=== PATIENT | male | born 1960 | race Caucasian/White ===

== ENCOUNTER 2016-08-06 14:46 | Observation (INO) | payer BC ==
[2016-08-06 15:31] LABS: Urine Bilirubin Negative (NEGATIVE); Urine Blood 250 /ul (NEGATIVE); Urine Ketone Negative (NEGATIVE); Urine Nitrite Negative (NEGATIVE); Urine Protein 15 mg/dL (NEGATIVE); Urine Urobilinogen Normal (NORMAL); Urine pH 6.5 pH (5.0-7.0)
[2016-08-06] MEDS ORDERED: KETOROLAC TROMETHAMINE 60 MG/2 ML VIAL IM ONE ×2 (15:37→15:38)
[2016-08-06 15:43] LABS: Urine Appearance Cloudy; Urine Color Brown; Urine WBC None Seen /hpf (0-5)
[2016-08-06 15:44] LABS: Urine Bacteria TRACE; Urine RBC >50 /hpf (0-5)
[2016-08-06] MEDS ORDERED: ONDANSETRON 4 MG TAB.RAPDIS ONE (15:44)
[2016-08-06] MEDS ORDERED: ONDANSETRON 4 MG TAB.RAPDIS PO ONE (15:44)
--- NOTE | 2016-08-06 15:52 | ERNOTE ---
Back Pain ER HPI Date of Service: 08/06/16 Time Seen by Provider: 08/06/16 15:21 Source: patient Exam Limitations: no limitations Immunizations: IMMUNIZATION HX Immunizations Up to Date Yes Allergies/Adverse Reactions: Allergies No Known Allergies Allergy (Verified 08/06/16 17:36) Home Medications: HOME MEDICATIONS Ciprofloxacin HCl [Cipro] 500 mg PO BID #10 tab 08/07/16 [Last Taken Unknown] Tamsulosin HCl [Flomax] 2 cap PO DAILY@1800 #10 cap 08/07/16 [Last Taken Unknown ] Narrative: Pt. comes in with c/o R flank pain for three days that resolved two days ago and returned suddenly this morning. Pt. denies any fever, SOB, CP, numbness or tingling. Pt. does state that he has had nausea and vomiting with this. Pt. denies any Alleviating factors, aggravating factors, or prehospital treatment. Review of Systems - Review of Systems Constitutional: Present: no symptoms reported. Absent: fever, chills, weakness , fatigue, malaise EYE: Present: no symptoms reported ENT: Present: no symptoms reported. Absent: nose congestion, nasal drainage, sore throat Respiratory: Present: no symptoms reported. Absent: shortness of breath, cough , wheezing Cardiology: Present: no symptoms reported. Absent: chest pain, palpitations, edema Gastrointestinal/Abdominal: Present: nausea, vomiting, abdominal pain - RLQ suprapubic Genitourinary: Present: pain - R flank and groin. Absent: hematuria, decreased urinary output Musculoskeletal: Present: back pain - R flank. Absent: neck pain, joint pain Skin: Present: no symptoms reported Neurological: Present: no symptoms reported. Absent: headache, dizziness/light- headedness, numbness, tingling All Other Systems: All systems neg except as marked - Patient's Past Medical History Patient History - Medical: Kidney stone Patient History - Cardiac/Respiratory: No pertinent hx Patient History - Cancer: No Hx of Cancer Patient History - Surgical Procedures: No surgical history Patient History - Other: None - Family History Mother Family History - Medical: No pertinent hx Father Family History - Medical: No pertinent hx Family History - Cancer: Colon, Prostate - Social History Living Situations: home Psych History: No pertinent hx - Immunizations Immunizations Up to Date: Yes Physical Exam - Physical Exam General Appearance: Present: wd/wn, alert, no apparent distress Eye Exam: Normal inspection: bilateral, PERRL: bilateral, EOMI: bilateral Ears, Nose, Throat: Present: normal ENT inspection, normal pharynx Neck: Present: normal inspection, nontender. Absent: lymphadenopathy (R), lymphadenopathy (L) Respiratory: Present: no respiratory distress, normal breath sounds, no accessory muscle use, chest nontender, lungs clear Cardiovascular/Chest: Present: regular rate, rhythm, no murmur, normal peripheral pulses Gastrointestinal/Abdominal: Present: normal bowel sounds, nondistended, soft, no organomegaly, tenderness - RLQ suprapubic Back Exam: Present: normal range of motion, no vertebral tenderness, CVA tenderness (R) Extremity Exam: Present: normal inspection, non-tender, normal range of motion, no edema Neurological Exam: Present: alert, oriented, normal mood/affect, no motor/ sensory deficits, fur designer II-XII nml as tested, normal cerebellar test Skin Exam: Present: normal color, warm/dry. Absent: pallor, skin rash ED Progress - Results and Orders Patient's Lab Results:: I have reviewed the patient's lab results. - Vital Signs Patient's Vital Signs:: I have reviewed the patient's vital signs. Vital Signs: Vital Signs 08/06/16 14:56 Temperature 36.2 C L Pulse Rate 80 Respiratory 12 Rate Blood Pressure 157/95 O2 Sat by Pulse 99 Oximetry - CT/Ultrasound CT/Ultrasound Narrative: CT scan with 3.5mm stone R mid to distal ureter with hydronephrosis and perinephric stranding. with mild hydroureter and ureteral stranding. - Progress/Reassessment Chief Complaint: Back Pain Progress:: Improved Departure Clinical Impression: Hydronephrosis of right kidney, Renal stone - Departure Disposition: [facility] Condition: Good
[2016-08-06 15:58] LABS: Hematocrit 48.1 % (42.0-52.0); Hemoglobin 16.7 gm/dL (13.5-18.0); Mean Cell Volume 87.3 fl (78-100); Mean Corpuscular Hemoglobin 30.3 pg (27-31); Mean Corpuscular Hgb Conc 34.7 g/dl (32-36); Mean Platelet Volume 10.7 fl (6.0-9.5); Neutrophil # 9.5 K/mm3 (1.3-6.0); Neutrophil % 78.7 % (42-75.0); Platelet Count 300 K/mm3 (150-450); Red Blood Count 5.51 M/mm3 (4.7-6.0); Red Cell Distribution Width 12.2 % (11.5-14.0); White Blood Count 12.1 K/mm3 (4.0-10.5)
[2016-08-06 16:12] LABS: Albumin * 3.8 gm/dl (3.4-5.0); Anion Gap 11.5 mmol/L (6.8-13.8); BUN/Creatinine Ratio 11.3 (9.0-21.6); Bilirubin, Total 0.9 mg/dL (0.0-1.1); Ca. Corrected For Albumin 8.9 mg/dL (8.4-10.2); Calcium * 9.1 mg/dL (7.9-10.9); Carbon Dioxide 30.1 mmol/L (24-32.6); Potassium 4.6 mmol/L (3.4-4.6); Total Protein 7.9 gm/dL (6.2-8.2)
[2016-08-06] MEDS ORDERED: NORMAL SALINE 1,000 ML IV ONE (16:59)
[2016-08-06] MEDS ORDERED: ONDANSETRON HCL/PF 2 MG/ML VIAL IV PRN (17:18)
[2016-08-06] MEDS ORDERED: HYDROmorphone HCL 1 MG/ML DISP.SYRIN IV PRN (17:18)
[2016-08-06] MEDS ORDERED: ACETAMINOPHEN 325 MG TABLET PO PRN (17:18)
[2016-08-06] MEDS: CIPROFLOXACIN LACTATE/D5W 400 MG/200 ML BAG IV SCH (17:26)
[2016-08-06] MEDS ORDERED: TAMSULOSIN HCL 0.4 MG CAP.SR.24H PO SCH (18:00)
[2016-08-06] MEDS: DEXTROSE 5%-NORMAL SALINE 1,000 ML IV PRN (18:55)
--- NOTE | 2016-08-06 19:28 | HP ---
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 He just recently moved to [place]. 3 days ago, he developed the sudden onset of pain across his lower abdomen, moderately severe, which abated without treatment after a few hours. Today, about 8 am, he developed right flank pain, which was much more severe, and radiated into his right groin. It has still not abated, but is better after IV pain medication. It has been associated with nausea and vomiting. No hematuria, no dysuria, no fever, chills or sweats. Aching and sharp in nature. He has had this twice in the past, each time very severe, each time the stone passed in the hospital, size of stone unknown, stone not recovered. This time, he came to the [facility] ER, stone about 3.5 mm diameter in mid right ureter, with mild hydronephrosis on the right side, slight elevation in wbc count, hematuria under the microscope, and slight elevation of creatinine. Dr. Naqvi, urology, has been consulted and will see the patient tomorrow. - Patient's Past Medical History Patient History - Medical: Kidney stone Patient History - Cardiac/Respiratory: No pertinent hx Patient History - Cancer: No Hx of Cancer Patient History - Surgical Procedures: Colonoscopy Patient History - Other: None - Family History Mother Family History - Medical: No pertinent hx Father Family History - Medical: No pertinent hx Family History - Cancer: Colon, Prostate - Social History Living Situations: home Psych History: No pertinent hx Smoking Status: Never smoker Have you smoked in the past 12 months: No Do you dip or chew tobacco: No Patient requests Smoking Cessation Consult: No Initiate information on Smoking Cessation: No Alcohol Use: rarely Drug Use: none - Immunizations Immunizations Up to Date: Yes Review Of Systems (GEN) - Review of Systems Generalized/Overall Review: Present: No Symptoms Reported EENTM: Present: No Symptoms Reported Respiratory: Present: No Symptoms Reported Cardiac: Present: No Symptoms Reported Abdominal: Present: Other - see HPI Genitourinary: Present: Other - see HPI Musculoskeletal: Present: No Symptoms Reported Neurological: Present: No Symptoms Reported Skin: Present: No Symptoms Reported Endocrine: Present: No Symptoms Reported Misc: All systems neg except as marked Allergies/Adverse Reactions: Allergies Allergy/AdvReac Type Severity Reaction Status Date / Time No Known Allergies Allergy Verified 08/06/16 17:36 Home Medications: HOME MEDICATIONS NK [No Home Medication] 08/06/16 [Last Taken Unknown] Exam - Exam Vital Signs: Vital Signs - Last Taken Selected Entries 08/06/16 18:38 Temperature 37.0 C Temperature Oral Source Pulse Rate 87 Pulse Rhythm Regular Pulse Strength Normal Respiratory 16 Rate Respiratory Normal Depth Respiratory Normal Effort Non-Labored Respiratory Normal Pattern Blood Pressure 146/87 Blood Pressure Sitting Position O2 Sat by Pulse 95 Oximetry Oxygen Delivery Room Air Method Constitutional: Present: Alert, Oriented x3, Cooperative, Well developed, Well nourished, Mild distress ENT Exam: Present: normal ENT inspection, hearing grossly normal Eye Exam: bilateral eye: normal inspection, PERRL, EOMI Neck: Present: normal inspection Back Exam: Present: normal inspection, CVA tenderness (R) Respiratory: Present: lungs clear, normal breath sounds Cardiovascular/Chest: Present: regular rate, rhythm, no murmur Abdomen: Present: Normal bowel sounds, soft, nontender, nondistended, no rebound tenderness, no hepatospenomegaly, no masses Extremity: Present: normal inspection, no pedal edema Skin Exam: Present: normal color, warm/dry, no cyanosis Neurologic: Present: alert, oriented x 3 Appearance: Present: appropriate appearance, appropriate insight, neat Eye contact: Present: cooperative, good eye contact, normal speech Thoughts: Present: normal thought pattern Diagnostic Studies: Laboratory Results WBC 12.1 K/mm3 (4.0-10.5) H 08/06/16 15:50 RBC 5.51 M/mm3 (4.7-6.0) 08/06/16 15:50 Hgb 16.7 gm/dL (13.5-18.0) 08/06/16 15:50 Hct 48.1 % (42.0-52.0) 08/06/16 15:50 MCV 87.3 fl (78-100) 08/06/16 15:50 MCH 30.3 pg (27-31) 08/06/16 15:50 MCHC 34.7 g/dl (32-36) 08/06/16 15:50 RDW 12.2 % (11.5-14.0) 08/06/16 15:50 Plt Count 300 K/mm3 (150-450) 08/06/16 15:50 MPV 10.7 fl (6.0-9.5) H 08/06/16 15:50 Immature Gran % (Auto) 0.60 % (0.001-0.429) H 08/06/16 15:50 Immature Gran # (Auto) 0.07 K/mm3 (0.000-0.0310) H 08/06/16 15:50 Neutrophils % 78.7 % (42-75.0) H 08/06/16 15:50 Lymphocytes % 13.3 % (20-51) L 08/06/16 15:50 Monocytes % 5.2 % (0.0-9) 08/06/16 15:50 Eosinophils % 1.7 % (0.0-3.0) 08/06/16 15:50 Basophils % 0.5 % (0.0-1.0) 08/06/16 15:50 Nucleated RBC % 0.0 k/mm3 (0-1) 08/06/16 15:50 Neutrophils # 9.5 K/mm3 (1.3-6.0) H 08/06/16 15:50 Lymphocytes # 1.6 k/mm3 (1.5-3.5) 08/06/16 15:50 Monocytes # 0.6 k/mm3 (0.0-1.0) 08/06/16 15:50 Eosinophils # 0.2 k/mm3 (0.0-0.7) 08/06/16 15:50 Absolute Basophils 0.1 k/mm3 (0.0-0.1) 08/06/16 15:50 Sodium 141 mmol/L (132-142) 08/06/16 15:50 Plasma Sodium 142 mmol/L (130-142) 08/06/16 15:50 Potassium 4.6 mmol/L (3.4-4.6) 08/06/16 15:50 Chloride 104 mmol/L (97-106) 08/06/16 15:50 Carbon Dioxide 30.1 mmol/L (24-32.6) 08/06/16 15:50 Anion Gap 11.5 mmol/L (6.8-13.8) 08/06/16 15:50 BUN 18 mg/dL (6-23) 08/06/16 15:50 Creatinine 1.60 mg/dL (0.4-1.4) H 08/06/16 15:50 Est GFR (Non-Af Amer) 48 mL/min (60-130) L 08/06/16 15:50 BUN/Creatinine Ratio 11.3 (9.0-21.6) 08/06/16 15:50 Random Glucose 148 mg/dL (70-110) H 08/06/16 15:50 Calcium 9.1 mg/dL (7.9-10.9) 08/06/16 15:50 Calcium Adj for Albumin 8.9 mg/dL (8.4-10.2) 08/06/16 15:50 Total Bilirubin 0.9 mg/dL (0.0-1.1) 08/06/16 15:50 AST 18 U/L (0-48) 08/06/16 15:50 ALT 36 U/L (19-67) 08/06/16 15:50 Alkaline Phosphatase 126 U/L (50-170) 08/06/16 15:50 Total Protein 7.9 gm/dL (6.2-8.2) 08/06/16 15:50 Albumin 3.8 gm/dl (3.4-5.0) 08/06/16 15:50 Urine Color Brown 08/06/16 15:16 Urine Appearance Cloudy 08/06/16 15:16 Urine pH 6.5 pH (5.0-7.0) 08/06/16 15:16 Ur Specific Cornelius 1.020 SP.GR. (1.005-1.030) 08/06/16 15:16 Urine Protein 15 mg/dL (NEGATIVE) H 08/06/16 15:16 Urine Glucose (UA) Negative mg/dL (NEGATIVE) 08/06/16 15:16 Urine Ketones Negative mg/dL (NEGATIVE) 08/06/16 15:16 Urine Blood 250 /ul (NEGATIVE) H 08/06/16 15:16 Urine Nitrate Negative (NEGATIVE) 08/06/16 15:16 Urine Bilirubin Negative mg/dl (NEGATIVE) 08/06/16 15:16 Prot Sulfosalicylic Acd 3+ mg/dL (0) H 08/06/16 15:16 Urine Urobilinogen Normal EU/dl (NORMAL) 08/06/16 15:16 Ur Leukocyte Esterase Negative /ul (NEGATIVE) 08/06/16 15:16 Urine RBC >50 /hpf (0-5) H 08/06/16 15:16 Urine WBC None seen /hpf (0-5) 08/06/16 15:16 Ur Epithelial Cells None seen /hpf (0-5) 08/06/16 15:16 Urine Bacteria Trace (NONE) 08/06/16 15:16 Urine Culture Comments No culture indicated 08/06/16 15:16 Assessment/Plan - Narrative Narrative: Follow labs. Cipro IV. symptom control. Strain urine. Flomax. Urology consult. - Assessment/Plan (1) Renal colic on right side Problem: Acute (2) Hydronephrosis of right kidney Problem: Acute (3) Failure of outpatient treatment Problem: Acute (4) Leukocytosis Problem: Acute Qualifiers: Leukocytosis type: unspecified Qualified Code(s): D72.829 - Elevated white blood cell count, unspecified (5) Acute renal failure superimposed on stage 2 chronic kidney disease Problem: Acute Qualifiers: Acute renal failure type: unspecified Qualified Code(s): N17.9 - Acute kidney failure, unspecified; N18.2 - Chronic kidney disease, stage 2 (mild)
[2016-08-07] MEDS: DEXTROSE 5%-NORMAL SALINE 1,000 ML IV PRN (02:58)
[2016-08-07] MEDS: CIPROFLOXACIN LACTATE/D5W 400 MG/200 ML BAG IV SCH (04:25)
[2016-08-07 05:46] LABS: Hematocrit 41.8 % (42.0-52.0); Hemoglobin 14.5 gm/dL (13.5-18.0); Mean Cell Volume 87.6 fl (78-100); Mean Corpuscular Hemoglobin 30.4 pg (27-31); Mean Corpuscular Hgb Conc 34.7 g/dl (32-36); Neutrophil # 6.4 K/mm3 (1.3-6.0); Neutrophil % 63.8 % (42-75.0); Platelet Count 217 K/mm3 (150-450); Red Blood Count 4.77 M/mm3 (4.7-6.0); Red Cell Distribution Width 12.1 % (11.5-14.0)
[2016-08-07 06:04] LABS: Anion Gap 10.8 mmol/L (6.8-13.8); BUN/Creatinine Ratio 9.3 (9.0-21.6); Carbon Dioxide 28.8 mmol/L (24-32.6); Estimated Creat Clear 68.2; Potassium 3.6 mmol/L (3.4-4.6)
[2016-08-07 06:30] VITALS: BP 110/57
[2016-08-07] MEDS ORDERED: ENOXAPARIN SODIUM 40 MG/0.4 ML SYRG SC SCH (07:45)
--- NOTE | 2016-08-07 08:07 | DS ---
(1) Renal colic on right side Problem: Resolved (2) Hydronephrosis of right kidney Problem: Acute (3) Failure of outpatient treatment Problem: Resolved (4) Leukocytosis Problem: Resolved Qualifiers: Leukocytosis type: unspecified Qualified Code(s): D72.829 - Elevated white blood cell count, unspecified (5) Acute renal failure superimposed on stage 2 chronic kidney disease Problem: Resolved Qualifiers: Acute renal failure type: unspecified Qualified Code(s): N17.9 - Acute kidney failure, unspecified; N18.2 - Chronic kidney disease, stage 2 (mild) Description of Stay: Improved by evening the day of admission. No pain at all since, symptom free. No stone recovered. No need for urology consult. Can go home straining urine with outpatient followup. Procedures Performed: none Discharge Disposition: Home self care Disposition: Home self-care Condition: Good Discharge Activity: Activity as tolerated Discharge Diet: General/regular food - Drink so much liquid at all times that your urine never has any color. Consultation Done:: Urology consultation, Dr. Naqvi, ordered, but not needed. Problem Oriented Discharge Instructions to Patient/Family: Renal Colic, Easy-to -Read, Kidney Stones, [id number] Additional Patient Instructions (free text): Strain all urine for the next five days. If you collect one, save it and give it to your doctor. See your doctor this week. No activity restrictions. Prescriptions (Any new or edited meds): Ciprofloxacin HCl [Cipro] 500 mg PO BID #10 tab Tamsulosin HCl [Flomax] 2 cap PO DAILY@1800 #10 cap Complete Home Medications List: Complete Home Medication List: Ciprofloxacin HCl [Cipro] 500 mg PO BID #10 tab 08/07/16 Tamsulosin HCl [Flomax] 2 cap PO DAILY@1800 #10 cap 08/07/16
== END 2016-08-07 08:45 | disposition home or self-care (01) ==
LOC: ER 14:46 → MS 16:57
PROVIDERS: ADMIT Allergy & Immunology; ATTEND Allergy & Immunology
DX: N13.2 Hydronephrosis with renal and ureteral calculous obstruction (principal); N18.2 Chronic kidney disease, stage 2 (mild); D72.829 Elevated white blood cell count, unspecified; N17.9 Acute kidney failure, unspecified
CPT/HCPCS: 36415; 74176; 80048; 80053; 81001; 85025; 96365; 96366; 96367; 96372; 99284; G0378

== ENCOUNTER 2017-02-13 03:51 | Emergency (ER) | payer OTHER, BC ==
[2017-02-13 04:00] VITALS: BP 158/99
[2017-02-13] MEDS ORDERED: TETRACAINE HCL 150 DROP BTL EACHEYE ONE (04:06)
[2017-02-13] MEDS ORDERED: TETRACAINE HCL 150 DROP BTL ONE (04:07)
[2017-02-13] MEDS ORDERED: GENTAMICIN SULFATE 3.5 APPL TUBE RIGHTEYE ONE (04:19)
[2017-02-13] MEDS ORDERED: GENTAMICIN SULFATE 3.5 APPL TUBE ONE (04:22)
--- NOTE | 2017-02-13 04:40 | ERNOTE ---
ENT HPI Presenting Symptoms: eye pain Time Seen by Provider: 02/13/17 04:05 Source: patient Exam Limitations: no limitations - Immun/Allergies/Home Medications Immunizations: IMMUNIZATION HX Immunizations Up to Date Yes History of Influenza Vaccine No Hx Pneumococcal Vaccination No Allergies/Adverse Reactions: Allergies Allergy/AdvReac Type Severity Reaction Status Date / Time No Known Allergies Allergy Verified 08/06/16 17:36 - History of Present Illness Narrative: Pt was sitting in his office and felt something go into his eye. He tried rubbing it tried wiping it with tissue all without improvement. Severity: Present: moderate ENT Location: Present: eye (R) Prearrival Treatment: Present: flushing eys - and attempting to remove FB with tissue Modifying Factors - Improves: Reports: nothing Associated Symptoms - ENT: Reports: denies symptoms Review of Systems - Review of Systems Constitutional: Absent: recent illness EYE: Present: see HPI, tearing. Absent: blurred vision, double vision ENT: Present: no symptoms reported Respiratory: Present: no symptoms reported Cardiology: Present: no symptoms reported Gastrointestinal/Abdominal: Present: no symptoms reported Genitourinary: Present: no symptoms reported Musculoskeletal: Present: no symptoms reported Skin: Absent: rash Neurological: Absent: headache Endocrine: Present: no symptoms reported Hematologic/Lymphatic: Present: no symptoms reported Psych: Present: no symptoms reported - Patient's Past Medical History Patient History - Medical: Kidney stone Patient History - Cardiac/Respiratory: No pertinent hx Patient History - Cancer: No Hx of Cancer Patient History - Surgical Procedures: No surgical history Patient History - Other: None - Family History Mother Family History - Medical: No pertinent hx Father Family History - Medical: No pertinent hx Family History - Cancer: Colon, Prostate - Social History Living Situations: spouse Abuse History: No History of abuse Psych History: No pertinent hx Smoking Status: Never smoker Have you smoked in the past 12 months: No Do you dip or chew tobacco: No Alcohol Use: none Drug Use: none - Immunizations Immunizations Up to Date: Yes Hx Pneumococcal Vaccination: No History of Influenza Vaccine: No Physical Exam - Physical Exam General Appearance: Present: wd/wn, alert, no apparent distress Head Exam: Present: normal inspection, no evidence of injury Eye Exam: PERRL: bilateral, EOMI: bilateral, Photophobia: right, Other: right - foreign body on cornea inferior to the pupil. White and thin adhered to the cornea. 1mm x 2 mm Ears, Nose, Throat: Present: normal ENT inspection Neck: Present: normal inspection, nontender Respiratory: Present: no respiratory distress, no accessory muscle use Extremity Exam: Present: normal inspection, non-tender, no edema Neurological Exam: Present: alert, oriented, normal mood/affect, no motor/ sensory deficits Skin Exam: Present: normal color, warm/dry Lymphatic Exam: Present: no adenopathy ED Progress - Vital Signs Vital Signs: Vital Signs 02/13/17 03:54 Temperature 37.1 C Pulse Rate 80 Respiratory 18 Rate Blood Pressure 158/99 O2 Sat by Pulse 96 Oximetry - Progress/Reassessment Chief Complaint: Eye Injury/Trauma Progress:: Improved Progress Note-Subjective: Gent ophthalmic administered in ED and remaining product sent home with patient Procedures Eye Location: right eye Tetracaine Drops Administered: Yes - 2 Eye - Cornea: Right: examined w/fluorescein, fluorescein dye uptake - inferior to pupil, corneal ulcer - 1mm x 2 mm Eye FB Removal: removal w/ needle - yes Antibiotic Ointment/Drps Admin: right eye Complications: Pt mendy procedure well Departure Clinical Impression: Corneal ulcer of right eye - Departure Disposition: Home Follow Up Needed Condition: Good Instructions: Corneal Ulcer Additional Instructions: Follow up with an eye doctor after you get home within the next 2 days.
== END 2017-02-13 04:38 | disposition home or self-care (01) ==
LOC: ER 03:51
PROC: 08B8XZZ Excision of Right Cornea, External Approach (ICD-10-PCS; principal; 2017-02-13)
DX: H16.001 Unspecified corneal ulcer, right eye (principal)